=== PATIENT | male | born 1980 | race Two or more races ===

== ENCOUNTER 2020-08-27 21:51 | Inpatient (IN) | payer MEDICAID, OTHER ==
[~2020-08-27] VITALS: Ht 172.7 cm; Wt 69.1 kg
[2020-08-27 22:33] LABS: Basophils # (auto) 0.1 10 ^3/uL (0-0.2); Basophils % (auto) 1.3 % (0.0-2.0); Eosinophils # (auto) 0.1 10 ^3/uL (0-0.8); Hematocrit 41.8 % (41.0-53.0); Hemoglobin 14.4 g/dL (13.5-17.5); Lymphocytes # (auto) 2.1 10 ^3/uL (0.4-5.4); Lymphocytes % (auto) 30.8 % (10.0-50.0); Mean Corpuscular Hemoglobin 33.2 pg (28.0-32.0); Mean Corpuscular Hgb Conc. 34.4 g/dL (32.0-36.0); Mean Corpuscular Volume 96.6 fL (80.0-100.0); Monocytes # (auto) 0.6 10 ^3/uL (0-1.3); Monocytes % (auto) 8.2 % (0.0-12.0); Neutrophils % (auto) 58.7 % (37.0-80.0); Nucleated Red Blood Cells % 0.1 %; Red Blood Cells 4.33 10^6/uL (4.5-5.90); Red Cell Distribution Width 13.1 % (11.8-14.3); White Blood Cell 6.8 10^3/uL (4.4-10.8)
[2020-08-27 22:54] LABS: Albumin 3.6 g/dL (3.4-5.0); Calcium 8.5 mg/dL (8.5-10.1); Potassium 3.9 mmol/L (3.5-5.1)
[2020-08-27 23:03] LABS: BUN/Creatinine Ratio 4.7; Bilirubin, Total 0.4 mg/dL (0.2-1.0)
[2020-08-27 23:19] LABS: Urine WBC None Seen /hpf (0 - 3)
[2020-08-27] MEDS ORDERED: SODIUM CHLORIDE 0.9% 1,000 ML IV ONE (23:30)
[2020-08-27] MEDS ORDERED: InsuLIN REG 1unit/0.01ml Soln (100units/ml) IV ONE (23:30)
[2020-08-27 23:32] LABS: Urine Bacteria FEW /hpf (None Seen); Urine Blood Negative /uL (Negative)
[2020-08-27 23:36] LABS: Urine Budding Yeast Rare /hpf (None Seen)
[2020-08-28] MEDS ORDERED: SODIUM CHLORIDE 0.9% 2,000 ML IV ONE (03:30)
[2020-08-28] MEDS ORDERED: TEMAZEPAM 15 MG CAP PO PRN (04:30)
[2020-08-28] MEDS ORDERED: MORPHINE SULFATE INJECTION 2 MG/ML SYRG IV PRN (04:30)
[2020-08-28] MEDS ORDERED: ONDANSETRON HCL 4 MG/2 ML VIAL IV PRN (04:30)
[2020-08-28] MEDS ORDERED: NITROGLYCERIN 0.4 MG SL TAB SL PRN (04:30)
[2020-08-28] MEDS ORDERED: DEXTROSE (50%) 50ML SYRG IV PRN (04:30)
[2020-08-28] MEDS: SODIUM CHLORIDE 0.9% 1,000 ML IV SCH ×2 (05:25→14:30)
[2020-08-28 08:00] VITALS: BP 131/89
[2020-08-28] MEDS: ACCU-CHEK COMFORT CURVE STRIP VI SCH ×5 (08:09→23:51)
[2020-08-28] MEDS: InsuLIN REG 1unit/0.01ml Soln (100units/ml) SC SCH ×5 (08:09→23:54)
[2020-08-28] MEDS: FAMOTIDINE 20 MG TAB PO SCH ×2 (10:03→21:44)
[2020-08-28 10:32] LABS: Basophils # (auto) 0 10 ^3/uL (0-0.2); Basophils % (auto) 0.4 % (0.0-2.0); Eosinophils # (auto) 0 10 ^3/uL (0-0.8); Eosinophils % (auto) 0.7 % (0.0-7.0); Hematocrit 41.5 % (41.0-53.0); Hemoglobin 14.4 g/dL (13.5-17.5); Lymphocytes % (auto) 27.7 % (10.0-50.0); Mean Corpuscular Hemoglobin 32.6 pg (28.0-32.0); Mean Corpuscular Hgb Conc. 34.8 g/dL (32.0-36.0); Mean Corpuscular Volume 93.6 fL (80.0-100.0); Monocytes # (auto) 0.6 10 ^3/uL (0-1.3); Neutrophils # (auto) 4.5 10 ^3/uL (1.6-8.6); Neutrophils % (auto) 63.2 % (37.0-80.0); Nucleated Red Blood Cells % 0.1 %; Red Blood Cells 4.43 10^6/uL (4.5-5.90); Red Cell Distribution Width 13.2 % (11.8-14.3); White Blood Cell 7.1 10^3/uL (4.4-10.8)
[2020-08-28 10:47] LABS: Potassium 3.7 mmol/L (3.5-5.1)
[2020-08-28 10:53] LABS: Albumin 3.2 g/dL (3.4-5.0); BUN/Creatinine Ratio 7.4; Bilirubin, Total 0.8 mg/dL (0.2-1.0); Calcium 8.5 mg/dL (8.5-10.1); Total Protein 7.3 g/dL (6.4-8.2)
[2020-08-28] MEDS ORDERED: FOLIC ACID 1 MG TAB PO ONE (12:15)
[2020-08-28] MEDS ORDERED: MULTIPLE VITAMIN TAB PO ONE (12:15)
[2020-08-28] MEDS ORDERED: THIAMINE HCL 100 MG TAB PO ONE (12:15)
[2020-08-28 12:41] VITALS: BP 129/79
[2020-08-28] MEDS ORDERED: chlordiazePOXIDE HCL 25 MG CAP PO PRN (14:00)
[2020-08-28] MEDS ORDERED: GABA100C9 PO (14:51)
[2020-08-28] MEDS ORDERED: METF-370 PO (14:51)
[2020-08-28 17:00] VITALS: BP 123/88
[2020-08-28 22:00] VITALS: BP 126/85
[2020-08-28] MEDS ORDERED: INSULIN LANTUS (GLARGINE) 1 /0.01ml (100units/ml) SC SCH (22:00)
[2020-08-28] MEDS ORDERED: GABAPENTIN 100 MG CAP PO ONE (23:45)
[2020-08-29] MEDS: SODIUM CHLORIDE 0.9% 1,000 ML IV SCH ×2 (00:30→09:58)
[2020-08-29] MEDS: ACCU-CHEK COMFORT CURVE STRIP VI SCH ×3 (03:48→12:00)
[2020-08-29] MEDS: InsuLIN REG 1unit/0.01ml Soln (100units/ml) SC SCH ×3 (03:49→12:30)
[2020-08-29 06:49] LABS: Basophils # (auto) 0.1 10 ^3/uL (0-0.2); Basophils % (auto) 0.9 % (0.0-2.0); Eosinophils # (auto) 0.1 10 ^3/uL (0-0.8); Eosinophils % (auto) 1.5 % (0.0-7.0); Hematocrit 41.5 % (41.0-53.0); Hemoglobin 14.6 g/dL (13.5-17.5); Lymphocytes % (auto) 26.6 % (10.0-50.0); Mean Corpuscular Hemoglobin 32.9 pg (28.0-32.0); Mean Corpuscular Hgb Conc. 35.1 g/dL (32.0-36.0); Mean Corpuscular Volume 93.7 fL (80.0-100.0); Monocytes # (auto) 0.7 10 ^3/uL (0-1.3); Monocytes % (auto) 8.8 % (0.0-12.0); Neutrophils # (auto) 4.7 10 ^3/uL (1.6-8.6); Neutrophils % (auto) 62.2 % (37.0-80.0); Nucleated Red Blood Cells % 0.2 %; Red Blood Cells 4.43 10^6/uL (4.5-5.90); Red Cell Distribution Width 13.2 % (11.8-14.3); White Blood Cell 7.6 10^3/uL (4.4-10.8)
[2020-08-29 07:12] LABS: Potassium 3.6 mmol/L (3.5-5.1)
[2020-08-29 07:20] LABS: Albumin 2.8 g/dL (3.4-5.0); BUN/Creatinine Ratio 12.7; Bilirubin, Total 0.7 mg/dL (0.2-1.0); Calcium 8.4 mg/dL (8.5-10.1); Total Protein 6.5 g/dL (6.4-8.2)
[2020-08-29 08:38] VITALS: BP 140/90
[2020-08-29] MEDS: FAMOTIDINE 20 MG TAB PO SCH (09:57)
[2020-08-29] MEDS ORDERED: FOLIC ACID 1 MG TAB PO SCH (10:00)
[2020-08-29] MEDS ORDERED: MULTIPLE VITAMIN TAB PO SCH (10:00)
[2020-08-29] MEDS ORDERED: THIAMINE HCL 100 MG TAB PO SCH (10:00)
[2020-08-29] MEDS ORDERED: INSLANTI SC (11:00)
[2020-08-29] MEDS ORDERED: METF-372 PO (11:00)
[2020-08-29] MEDS ORDERED: GABA100C9 PO (11:10)
[2020-08-29 12:33] VITALS: BP 127/87
== END 2020-08-29 15:02 | disposition home or self-care (01) | DRG 420 ==
LOC: ER 21:54 → TELE 08-28 04:23 → TELE-CENTR 08-28 08:30 → CENTRAL 08-29 11:03
PROVIDERS: ADMIT Nurse Practitioner; ATTEND Internal Medicine
DX: E11.65 Type 2 diabetes mellitus with hyperglycemia (principal); E11.42 Type 2 diabetes mellitus with diabetic polyneuropathy; K70.9 Alcoholic liver disease, unspecified; E86.0 Dehydration; B19.20 Unspecified viral hepatitis C without hepatic coma; R74.01 Elevation of levels of liver transaminase levels; F10.10 Alcohol abuse, uncomplicated; F12.90 Cannabis use, unspecified, uncomplicated; Z79.4 Long term (current) use of insulin; Z91.14 Patient's other noncompliance with medication regimen; Z91.19 Patient's noncompliance with other medical treatment and regimen; Z79.899 Other long term (current) drug therapy
CPT/HCPCS: 36415; 76705; 80053; 80061; 81001; 82010; 82962; 83036; 83735; 84443; 85025; 85049; 87426; 96361; 96374; G0378; J1815

== ENCOUNTER 2020-11-12 09:42 | Emergency (ER) | payer MEDICAID ==
[~2020-11-12] VITALS: Ht 172.7 cm; Wt 63.5 kg
[~2020-11-12 09:42] MED LIST: GABA100C9 PO; INSLANTI SC; METF-372 PO
[2020-11-12 10:25] VITALS: BP 96/67
[2020-11-12] MEDS ORDERED: IBUPROFEN 800 MG TAB PO ONE (11:30)
== END 2020-11-12 12:19 | disposition home or self-care (01) ==
LOC: ER 09:42
DX: S23.41XA Sprain of ribs, initial encounter (principal); E11.9 Type 2 diabetes mellitus without complications; Z79.4 Long term (current) use of insulin; Z79.899 Other long term (current) drug therapy; X50.1XXA Overexertion from prolonged static or awkward postures, initial encounter; Y93.89 Activity, other specified; Y92.89 Other specified places as the place of occurrence of the external cause; Y99.8 Other external cause status
CPT/HCPCS: 71101

== ENCOUNTER 2021-08-29 20:42 | Emergency (ER) | payer MEDICAID ==
[~2021-08-29] VITALS: Ht 172.7 cm; Wt 58.1 kg
[2021-08-29 22:04] LABS: Basophils # (auto) 0.1 10 ^3/uL (0-0.2); Basophils % (auto) 1.1 % (0.0-2.0); Eosinophils # (auto) 0.1 10 ^3/uL (0-0.8); Eosinophils % (auto) 0.7 % (0.0-7.0); Hematocrit 38.9 % (41.0-53.0); Lymphocytes # (auto) 1.9 10 ^3/uL (0.4-5.4); Lymphocytes % (auto) 24.7 % (10.0-50.0); Mean Corpuscular Hemoglobin 30.7 pg (28.0-32.0); Mean Corpuscular Hgb Conc. 33.3 g/dL (32.0-36.0); Mean Corpuscular Volume 91.9 fL (80.0-100.0); Monocytes # (auto) 0.7 10 ^3/uL (0-1.3); Monocytes % (auto) 9.6 % (0.0-12.0); Neutrophils % (auto) 63.9 % (37.0-80.0); Nucleated Red Blood Cells % 0.2 %; Red Blood Cells 4.23 10^6/uL (4.5-5.90); Red Cell Distribution Width 15.2 % (11.8-14.3); White Blood Cell 7.8 10^3/uL (4.4-10.8)
[2021-08-29 22:14] LABS: Albumin 3.3 g/dL (3.4-5.0); BUN/Creatinine Ratio 11.2; Calcium 9.2 mg/dL (8.5-10.1); Potassium 4.2 mmol/L (3.5-5.1)
[2021-08-29 22:17] LABS: Bilirubin, Total 0.2 mg/dL (0.2-1.0); Total Protein 8.2 g/dL (6.4-8.2)
[2021-08-30] MEDS ORDERED: SODIUM CHLORIDE 0.9% 1,000 ML IVB ONE (08:30)
[2021-08-30 11:49] LABS: Urine Bacteria NONE SEEN /hpf (None Seen); Urine Blood Negative /uL (Negative); Urine Specific Gravity 1.025 (1.001-1.035); Urine WBC 1 /hpf (0 - 3)
[2021-08-30] MEDS ORDERED: INSULIN LISPRO (HUMAN) 100 UNITS/ML ML SC ONE (15:00)
[2021-08-30] MEDS ORDERED: INSUINJ37 SC (15:07)
[2021-08-30] MEDS ORDERED: GABA-339 PO (15:07)
[2021-08-30] MEDS ORDERED: INSU100I4 SC (15:07)
[2021-08-30 15:54] VITALS: BP 120/83
== END 2021-08-30 16:27 | disposition home or self-care (01) ==
LOC: ER 20:42
DX: E11.9 Type 2 diabetes mellitus without complications (principal); N39.0 Urinary tract infection, site not specified; R74.8 Abnormal levels of other serum enzymes; E46 Unspecified protein-calorie malnutrition; Z68.1 Body mass index [BMI] 19.9 or less, adult; Z76.0 Encounter for issue of repeat prescription; Z79.4 Long term (current) use of insulin; Z79.899 Other long term (current) drug therapy
CPT/HCPCS: 36415; 80053; 81001; 82962; 83690; 83735; 85025; 96360; 96361; 96372; 99283; J1815; J7030

== ENCOUNTER 2021-09-17 20:17 | Emergency (ER) | payer MEDICAID ==
[~2021-09-17] VITALS: Ht 172.7 cm; Wt 59.0 kg
[~2021-09-17 20:17] MED LIST changes: +GABA-339 PO; +INSU100I4 SC; +INSUINJ37 SC
[2021-09-17 22:24] VITALS: BP 117/84
[2021-09-17] MEDS ORDERED: INSUINJ37 SC (23:58)
[2021-09-17] MEDS ORDERED: ALBU108A5 IN (23:58)
== END 2021-09-18 03:37 | disposition home or self-care (01) ==
LOC: ER 20:17
DX: E11.65 Type 2 diabetes mellitus with hyperglycemia (principal); F12.10 Cannabis abuse, uncomplicated
CPT/HCPCS: 82962

== ENCOUNTER 2021-09-28 04:35 | Emergency (ER) | payer MEDICAID ==
[~2021-09-28] VITALS: Ht 172.7 cm; Wt 56.8 kg
[~2021-09-28 04:35] MED LIST changes: +ALBU108A5 IN
[2021-09-28 04:50] VITALS: BP 112/84
== END 2021-09-28 09:10 | disposition left against medical advice (07) ==
LOC: ER 04:35
DX: E11.65 Type 2 diabetes mellitus with hyperglycemia (principal); Z53.21 Procedure and treatment not carried out due to patient leaving prior to being seen by health care provider